=== PATIENT | female | born 1960 | race African-American/Black ===

== ENCOUNTER → 2018-01-04 | Day surgery (SDC) | payer OTHER ==
[~2018-01-04] MED LIST: AMBIEN10 MG PO; AMILORIDE HCL5 MG PO; APRISO0.375 GM PO; BUDESONIDE EC3 MG PO; CLONIDINE HCL0.1 MG PO; CRESTOR10 MG PO; DIAZEPAM5 MG PO; FERROUS SULFAT325 MG PO; FOLIC ACID1 MG PO; GABAPENTIN300 MG PO; LASIX20 MG PO; MECLIZINE HCL12.5 MG PO; MIDAZOLAM HCL 2 MG/2 ML VIAL ONE; OMEPRAZOLE40 MG PO; PROMETHAZINE HC25 M1 PO; PROPOFOL IV EMULSION 10 MG/ML 50 ML VIAL ONE; PROVENTIL HFA6.7 GM INH; SLOW MAGNESIUM PO; SODIUM CHLORID500 M1 IV; SPIRIVA18 MCG INH; TRIBENZOR 20-51 EACH PO; TUMS300 MG PO; VENLAFAXINE H37.5 M2 PO; VITAMIN B-121000 MCG PO; VITAMIN E400 UNI1 PO; [UNRECOGNIZED DRUG - MIXTURE] IV
--- OUTSIDE RECORDS SUMMARY | 2018-01-04 07:18 | XMS REPORT | Clinical Summary ---
Author Author [facility] Address Unknown Phone Unavailable Care Team Providers Care Rn Acute Care Name Role Phone PCP Unavailable Allergies Active Allergy Reactions Severity Noted Date Comments Sulfamethoxazole-Trimetho Other (See Comments) High 09/20/2013 unknown prim Ofloxacin Other (See Comments) High 09/20/2013 unknown Morphine Anxiety High 09/18/2015 Penicillins Itching High 09/20/2013 Bupropion Hcl Other (See Comments), High 09/20/2013 unknown Itching Metoprolol 06/27/2015 Topiramate 06/27/2015 Current Medications Prescription Sig. Disp. Refills Start End Date Status Date olmesartan (BENICAR) 40 Take 20 mg by mouth Active MG tablet nightly . omeprazole (PRILOSEC) 40 Take 40 mg by mouth daily 12/26/19 Active MG capsule . 15 ibandronate (BONIVA) 150 Take 150 mg by mouth 01/03/20 Active mg tablet every 30 (thirty) days . 15 magnesium sulfate 5 Inject 5 g intravenously 06/27/20 Active gram/10 mL (500 mg/mL) every 7 days . 15 Syrg diltiazem (DILACOR XR) Take 120 mg by mouth Active 120 MG 24 hr capsule daily. hyoscyamine (LEVSIN/SL) Take 0.125 mg by mouth Active 0.125 mg SL tablet every 4 (four) hours as needed for Cramping. escitalopram oxalate Take 5 mg by mouth daily. Active (LEXAPRO) 5 MG tablet mesalamine (APRISO) 0.375 Take 1.5 mg by mouth Active gram 24 hr capsule daily . diphenoxylate-atropine Take 1 tablet by mouth 4 Active (LOMOTIL) 2.5-0.025 mg (four) times daily as per tablet needed for Diarrhea. budesonide (UCERIS) 9 mg Take 3 mg by mouth daily Active TaDE . hydrALAZINE (APRESOLINE) Take 50 mg by mouth 3 Active 50 MG tablet (three) times daily. meclizine (ANTIVERT) 25 Take 12.5 mg by mouth 3 Active MG tablet (three) times daily. furosemide (LASIX) 20 MG Take 20 mg by mouth as Active tablet needed . sodium chloride 0.9%, NS, Inject 500 mLs Active irrigation intravenously once a week. acetaminophen-codeine Take 1-2 tablets by mouth 20 tablet 0 08/02/20 Active (TYLENOL #3) 300-30 mg every 6 (six) hours as 16 per tablet needed for Pain (WARNING CAUSES SEDATION) for up to 20 doses. B.ANI/L.ACI/L.PANCHO/L.PLAN/ Take 1 capsule by mouth. Active L.GABI (PROBIOTIC FORMULA ORAL) vitamin E 400 UNIT Take 400 Units by mouth Active capsule daily. calcium carbonate Take 1 tablet by mouth 3 Active (CALCIUM CARBONATE) 300 (three) times daily. mg Chew cholecalciferol, vitamin Take 10 Units by mouth Active D3, 5,000 unit Tab daily Total of 10, 00 daily. lisinopril Take 20 mg by mouth Active (PRINIVIL,ZESTRIL) 20 MG daily. tabletIndications: hypertension hydrochlorothiazide Take 25 mg by mouth Active (HYDRODIURIL) 25 MG daily. tabletIndications: hypertension cloNIDine HCl (CATAPRES) Take 0.2 mg by mouth as Active 0.2 MG tablet needed (systolic 170). diazepam (VALIUM) 10 MG Take 10 mg by mouth 3 Active tablet (three) times daily. gabapentin (NEURONTIN) Take 300 mg by mouth 3 Active 300 MG (three) times daily. capsuleIndications: joint pain albuterol HFA (VENTOLIN Inhale 1 puff by mouth Active HFA) 90 mcg/actuation via inhaler every 4 inhaler (four) hours as needed for Wheezing. folic acid (FOLVITE) 1 MG Take 1 tablet (1 mg 30 tablet 0 12/16/19 12/16/19 tablet total) by mouth daily. 17 18 ferrous sulfate 325 (65 Take 1 tablet (325 mg 60 tablet 0 12/16/19 12/16/19 FE) MG tablet total) by mouth 2 (two) 17 18 times daily. cyanocobalamin 1000 MCG Take 1 tablet (1,000 mcg 30 tablet 0 12/16/19 12/16/19 tablet total) by mouth daily. 17 18 Hospital, Clinic, or Ordered Dose Route Frequency Start End Date Status Other Facility Date Administered Medication sodium chloride 0.9% (NS) IV Once 01/07/20 Active infusion 17 heparin (PF) injection 500 Units Cath PRN 01/07/20 01/07/20 Ended syringe 500 Units 17 17 magnesium sulfate 4 g in IV Once 01/07/20 01/07/20 Ended sodium chloride 0.9% (NS) 17 17 250 mL IVPBIndications: Hypomagnesemia potassium chloride 20 mEq 20 MEQ IV Once 01/07/20 01/07/20 Ended in 100 mL IVPB 17 17 sodium chloride 0.9% (NS) IV Once 01/07/20 01/07/20 Ended infusion 17 17 Active Problems Problem Noted Date Tobacco use disorder, continuous 12/12/[address] scan, chest 12/12/2016 Lung nodule 12/12/2016 EDDIE (acute kidney injury) (HCC) 12/10/2016 Pneumonia, unspecified organism 12/10/2016 Chest pain with moderate risk of acute coronary syndrome 09/17/2015 Acute renal failure (HCC) 07/12/2015 Colitis 12/08/2014 Diverticulosis of colon 12/08/2014 Diarrhea 12/07/2014 Hypomagnesemia 11/28/2013 Nausea & vomiting 11/28/2013 Diarrhea 11/28/2013 Abdominal pain 11/28/2013 Encounters Date Type Specialty Care Team Description 02/16/2017 Hospital Stefania Meeks MD Pre-op testing Encounter 02/16/2017 Orders Only General Internal Medicine 02/16/2017 Anesthesia Izaiah Hendrickson, Event AA 02/16/2017 Surgery Stefania Meeks MD BRONCHOSCOPY,ENDOBRONCHIA L ULTRASOUND (EBUS) DIAGNOSTIC/ THERAPEUTIC 01/07/2017 Procedure visit Oncology Mario Peterson MD Hypomagnesemia (Primary Keith Bloom, RN Dx) after 01/03/2017 Family History Medical History Relation Name Comments Heart disease Father Seizures Father COPD Mother Diabetes Mother Diabetes Sister Relation Name Status Comments Father Alive Mother Sister Alive Social History Tobacco Use Types Packs/Day Years Used Date Former Smoker Cigarettes 1 20 Quit: 12/19/2016 Tobacco Cessation: Ready to Quit: No Comments: Quit smoking in November2016 Alcohol Use Drinks/Week oz/Week Comments No Sex Assigned at Date Recorded Not on file Last Filed Vital Signs Vital Sign Reading Time Taken Blood Pressure 96/77 02/16/2017 2:50 PM CDT Pulse 99 02/16/2017 2:50 PM CDT Temperature 36.9 C (98.4 F) 02/16/2017 2:30 PM CDT Respiratory Rate 24 02/16/2017 2:50 PM CDT Oxygen Saturation 97% 02/16/2017 2:50 PM CDT Inhaled Oxygen - - Concentration Weight 78.7 kg (173 lb 9.6 oz) 02/16/2017 9:09 AM CDT Height 160 cm (5' 3") 02/16/2017 9:09 AM CDT Body Mass Index 30.75 02/16/2017 9:09 AM CDT Plan of Treatment Health Maintenance Due Date Last Done Comments INFLUENZA VACCINE 08/29/2017 Procedures Procedure Name Priority Date/Time Associated Diagnosis Comments BRONCHOSCOPY,SUPER D 02/16/2017 Mass of upper lobe of 10:00 AM CDT right lung Case Notes BRONCHOSCO PY WITH BRUSHING, BRONCHOSCO PY WITH BAL, NAVIGATION , BRONCHOSCO PY WITH TRANSBRONC HIAL BIOPSY, TRANSBRONC HIAL NEEDLE ASPIRATION , PERIPHERAL EBUS Special Needs (C-ARM, RADIAL EBUS AND LUNG POINT, OLYMPUS REP, ENDO TEAM NEEDED) PROCEDURE W/ C-ARM 02/16/2017 Mass of upper lobe of 10:00 AM CDT right lung Case Notes BRONCHOSCO PY WITH BRUSHING, BRONCHOSCO PY WITH BAL, NAVIGATION , BRONCHOSCO PY WITH TRANSBRONC HIAL BIOPSY, TRANSBRONC HIAL NEEDLE ASPIRATION , PERIPHERAL EBUS Special Needs (C-ARM, RADIAL EBUS AND LUNG POINT, OLYMPUS REP, ENDO TEAM NEEDED) BRONCHOSCOPY,ENDOBRONCHIA 02/16/2017 Mass of upper lobe of L ULTRASOUND (EBUS) 10:00 AM CDT right lung DIAGNOSTIC/ THERAPEUTIC Case Notes BRONCHOSCO PY WITH BRUSHING, BRONCHOSCO PY WITH BAL, NAVIGATION , BRONCHOSCO PY WITH TRANSBRONC HIAL BIOPSY, TRANSBRONC HIAL NEEDLE ASPIRATION , PERIPHERAL EBUS Special Needs (C-ARM, RADIAL EBUS AND LUNG POINT, OLYMPUS REP, ENDO TEAM NEEDED) BRONCHOSCOPY,TRANSBRONCHI 02/16/2017 Mass of upper lobe of AL NEEDLE ASPIRATION 10:00 AM CDT right lung BIOPSY Case Notes BRONCHOSCO PY WITH BRUSHING, BRONCHOSCO PY WITH BAL, NAVIGATION , BRONCHOSCO PY WITH TRANSBRONC HIAL BIOPSY, TRANSBRONC HIAL NEEDLE ASPIRATION , PERIPHERAL EBUS Special Needs (C-ARM, RADIAL EBUS AND LUNG POINT, OLYMPUS REP, ENDO TEAM NEEDED) BRONCHOSCOPY,TRANSBRONCHI 02/16/2017 Mass of upper lobe of AL LUNG BIOPSY 10:00 AM CDT right lung Case Notes BRONCHOSCO PY WITH BRUSHING, BRONCHOSCO PY WITH BAL, NAVIGATION , BRONCHOSCO PY WITH TRANSBRONC HIAL BIOPSY, TRANSBRONC HIAL NEEDLE ASPIRATION , PERIPHERAL EBUS Special Needs (C-ARM, RADIAL EBUS AND LUNG POINT, OLYMPUS REP, ENDO TEAM NEEDED) BRONCHOSCOPY,LAVAGE 02/16/2017 Mass of upper lobe of 10:00 AM CDT right lung Case Notes BRONCHOSCO PY WITH BRUSHING, BRONCHOSCO PY WITH BAL, NAVIGATION , BRONCHOSCO PY WITH TRANSBRONC HIAL BIOPSY, TRANSBRONC HIAL NEEDLE ASPIRATION , PERIPHERAL EBUS Special Needs (C-ARM, RADIAL EBUS AND LUNG POINT, OLYMPUS REP, ENDO TEAM NEEDED) BRONCHOSCOPY,BRUSHINGS 02/16/2017 Mass of upper lobe of 10:00 AM CDT right lung Case Notes BRONCHOSCO PY WITH BRUSHING, BRONCHOSCO PY WITH BAL, NAVIGATION , BRONCHOSCO PY WITH TRANSBRONC HIAL BIOPSY, TRANSBRONC HIAL NEEDLE ASPIRATION , PERIPHERAL EBUS Special Needs (C-ARM, RADIAL EBUS AND LUNG POINT, OLYMPUS REP, ENDO TEAM NEEDED) after 01/03/2017 Results * Antibody identification (02/16/2017 4:18 PM) Component Value Ref Range ANTIBODY ID (BEAKER) Anti-Susan UNID IgG Antibody Consult SIGNED OUTComment: Anti Susan detected, transfuse crossmatch compatible RBCs. An IgG antibody of undetermined specificity is detected, transfuse crossmatch compatible RBCs.Electronic Signature: Josef Peterson M.D. * XR chest 1 view portable / bedside (02/16/2017 2:05 PM) Specimen Performing Laboratory GE RIS Narrative FINAL REPORT TECHNIQUE: Frontal chest radiograph dated 02/16/2017. CLINICAL HISTORY: Dyspnea, status post right upper lobe, transbronchial biopsy COMPARISON STUDY: Chest radiograph performed 12/15/2016 IMPRESSION: Right-sided MediPort is unchanged. There are increased interstitial markings predominately in the right upper lobe as well as in the right lower lobe with small amount fluid seen in the right minor fissure, likely secondary to recent biopsy. No focal consolidation seen. No pneumothorax. Cardiomediastinal silhouette is normal in size. No pulmonary edema. No fracture or dislocation. Signed: Mady Gomez MD Report Verified Date/Time:02/16/2017 14:31:40 Reading Location: [facility] Radiology Reading Room Procedure Note Interface, External Ris In - 02/16/2017 2:33 PM CDT FINAL REPORT TECHNIQUE: Frontal chest radiograph dated 02/16/2017. CLINICAL HISTORY: Dyspnea, status post right upper lobe, transbronchial biopsy COMPARISON STUDY: Chest radiograph performed 12/15/2016 IMPRESSION: Right-sided MediPort is unchanged. There are increased interstitial markings predominately in the right upper lobe as well as in the right lower lobe with small amount fluid seen in the right minor fissure, likely secondary to recent biopsy. No focal consolidation seen. No pneumothorax. Cardiomediastinal silhouette is normal in size. No pulmonary edema. No fracture or dislocation. Signed: Mady Gomez MD Report Verified Date/Time: 02/16/2017 14:31:40 Reading Location: [facility] Radiology Reading Room * REPORT OF PROCEDURE - ENDOSCOPY URL (02/16/2017 1:35 PM) * AFB culture + smear (02/16/2017 1:35 PM) Only the most recent of 4 results within the time period is included. Component Value Ref Range Result No acid-fast bacilli isolated in 42 days AFB Smear No acid fast bacilli seen Specimen Performing Laboratory Tissue - Lung, Right [facility] Upper Lobe [address] [place] [address] * Surgically obtained culture + gram stain (02/16/2017 1:35 PM) Component Value Ref Range Result No growth Gram Stain Result <1+ WBCs Gram Stain Result No organisms seen Specimen Performing Laboratory Tissue - Lung, Right [facility] Upper Lobe [address] [place] [address] * Fungus culture + smear (02/16/2017 1:35 PM) Only the most recent of 4 results within the time period is included. Component Value Ref Range Result No fungus isolated in 28 days Fungus Smear No fungi seen Specimen Performing Laboratory Tissue - Lung, Right [facility] Upper Lobe [address] [place] [address] * Bronchial culture + gram stain (02/16/2017 1:30 PM) Only the most recent of 3 results within the time period is included. Component Value Ref Range Result No growth Gram Stain Result No White blood cells seen Gram Stain Result No organisms seen Specimen Performing Laboratory Bronch Brushing - Lung, [facility] Right Upper Lobe [address] [place] [address] * SPIN/CONCENTRATION CHARGE (02/16/2017 1:30 PM) Only the most recent of 3 results within the time period is included. Component Value Ref Range Concentration charged Done Specimen Performing Laboratory Bronch Brushing - Lung, [facility] Right Upper Lobe [address] [place] [address] * Cytology (02/16/2017 1:24 PM) Only the most recent of 3 results within the time period is included. Component Value Ref Range Cytology See Separate Report Specimen Performing Laboratory BAL - Lung, Right Upper [facility] Lobe [address] [place] [address] * Cytology (02/16/2017 1:24 PM) Only the most recent of 3 results within the time period is included. Component Value Ref Range Case Report Medical Cytology Report Case: [id number] Authorizing Provider: Stefania Meeks MD Ordering Provider: Stefania Meeks MD Ordering Location: [facility] Collected: 02/16/2017 1324 PERIOPERATIVE SERVICES Pathologist: Daniel Rhodes MD Received: 02/16/2017 143 Specimen: Lung, Right Upper Lobe DIAGNOSIS RIGHT UPPER LOBE LUNG, BAL (CYTOSPINS): - NO MALIGNANT CELLS IDENTIFIED Signing Pathologist Direct Phone Line: [phone] COMMENT Please see surgical pathology report [id number] and cytopathology reports [id number], [id number], and 744. CPT Code(s) 85025 CLINICAL DATA Mass of lung, right upper; chronic bronchitis SPECIMEN SOURCE RIGHT UPPER LOBE LUNG BAL GROSS DESCRIPTION 38 ml RPMI; 4 cytospins Collected: [id number] Received: 18023 STATEMENT OF ADEQUACY Satisfactory Technical component was [facility], Department of performed at Pathology, [address] [place] [address], Professional component [facility], Department of was performed at Pathology, [address] [place] [address], Specimen Performing Laboratory BAL - Lung, Right Upper [facility] Lobe [address] [place] [address] * Tissue Exam (02/16/2017 1:22 PM) Component Value Ref Range Case Report Surgical Pathology Report Case: [id number] Authorizing Provider: Stefania Meeks MD Ordering Provider: Stefania Meeks MD Ordering Location: [facility] Collected: 02/16/2017 1322 PERIOPERATIVE SERVICES Pathologist: Ruben Gregory MD Received: 02/16/2017 1520 Specimens: A) - Lung, Right Upper Lobe, site 1 transbronchial B) - Lung, Right Upper Lobe, site 2 transbronchial DIAGNOSIS PART A RIGHT UPPER LOBE LUNG, TRANSBRONCHIAL BIOPSY SITE #1: BLOOD AND RARE SUPERFICIAL STRIPS OF UNREMARKABLE BRONCHIOLAR EPITHELIUM. NEGATIVE FOR CARCINOMA. DIAGNOSTIC MATERIAL IS LIMITED, SEE DIAGNOSTIC COMMENT. PART B RIGHT UPPER LOBE LUNG, TRANSBRONCHIAL BIOPSY SITE #2: BLOOD AND RARE SUPERFICIAL STRIPS OF UNREMARKABLE BRONCHIOLAR EPITHELIUM. NEGATIVE FOR CARCINOMA. DIAGNOSTIC MATERIAL IS LIMITED, SEE DIAGNOSTIC COMMENT. Signing Pathologist Direct Phone Line: [phone] COMMENT The above findings may not be inbound sales representative of a clinically suspicious mass. Correlation with clinical and radiological findings required to determine the need for additional tissue based studies. CPT Code(s) 53125A9 CLINICAL HISTORY Mass of lung right upper, chronic bronchitis SPECIMEN SOURCE A. Right upper lobe transbronchial biopsy site 1 B. Right upper lobe transbronchial biopsy site 2 GROSS DESCRIPTION Specimen is received in two containers of formalin both labeled with the patient's information. Specimen A: Labeled "right upper lobe transbronchial biopsy site #1" consists of five fragments of mcgee-red soft tissue ranging from 0.1 to 0.2 cm, submitted in A1. Specimen B: Labeled "right upper lobe lung transbronchial biopsy site #2" consists of a 0.4 cm fragment of red soft tissue submitted entirely in B1. CG/ew Specimen Performing Laboratory Tissue - Lung, Right [facility] Upper Lobe [address] [place] [address] * Fine Needle Aspirate (02/16/2017 1:06 PM) Component Value Ref Range Cytology See Separate Report Specimen Performing Laboratory Fine Needle Aspirate - [facility] Lung, Right Upper Lobe [address] [place] [address] * Fine Needle Aspirate by Clinician (02/16/2017 1:06 PM) Component Value Ref Range Case Report Medical Cytology Report Case: [id number] Authorizing Provider: Stefania Meeks MD Ordering Provider: Stefania Meeks MD Ordering Location: [facility] Collected: 02/16/2017 1306 PERIOPERATIVE SERVICES Pathologist: Daniel Rhodes MD Received: 02/16/2017 0576 Specimen: Lung, Right Upper Lobe, henderson needle TBNA DIAGNOSIS RIGHT UPPER LOBE LUNG, FNA BY CLINICIAN (CELL BLOCK OF ASPIRATE): - NO MALIGNANT CELLS IDENTIFIED - PREDOMINANTLY BLAND BRONCHIAL EPITHELIAL CELLS Signing Pathologist Direct Phone Line: [phone] COMMENT Please see surgical pathology report [id number] and cytopathology reports [id number], [id number], and [id number] for further evaluation. CPT Code(s) 11294 CLINICAL DATA Mass of lung, right upper; chronic bronchitis SPECIMEN SOURCE RIGHT UPPER LOBE LUNG FNA GROSS DESCRIPTION 25 ml CytoRich Red fixative; cell block only Collected: [id number] Received: 179440 Technical component was [facility], Department of performed at Pathology, [address] [place] [address], Professional component [facility], Department of was performed at Pathology, [address] [place] [address], Specimen Performing Laboratory Fine Needle Aspirate - [facility] Lung, Right Upper Lobe [address] [place] [address] * [place] radio interference trouble shooter in or 30 minute increments (02/16/2017 12:53 PM) Specimen Performing Laboratory [employer] Narrative FLUOROSCOPIC UNIT UTILIZED-NO INTERPRETATION REQUESTED. Procedure Note Interface, External Ris In - 02/24/2017 2:00 PM CDT FLUOROSCOPIC UNIT UTILIZED-NO INTERPRETATION REQUESTED. * ECG 12 lead (02/16/2017 11:21 AM) Specimen Performing Laboratory GE MUSE Narrative Ventricular Rate 78 BPM Atrial Rate 78 BPM P-R Interval 160 ms QRS Duration 86 ms Q-T Interval 394 ms QTC Calculation(Bazett) 449 ms P [place] 73 degrees R [place] -32 degrees T [place] 40 degrees Normal sinus rhythm Left axis deviation Abnormal ECG When compared with ECG of 25-DEC-2015 22:06, No significant change was found Confirmed by MD Sybil, Jose ([id number]) on 02/16/2017 2:29:58 PM Procedure Note Interface, External Ris In - 02/16/2017 2:30 PM CDT Ventricular Rate 78 BPM Atrial Rate 78 BPM P-R Interval 160 ms QRS Duration 86 ms Q-T Interval 394 ms QTC Calculation(Bazett) 449 ms P [place] 73 degrees R [place] -32 degrees T [place] 40 degrees Normal sinus rhythm Left axis deviation Abnormal ECG When compared with ECG of 25-DEC-2015 22:06, No significant change was found Confirmed by MD Devine Roberto ([id number]) on 02/16/2017 2:29:58 PM * aPTT (02/16/2017 10:49 AM) Component Value Ref Range PTT 27.5 22.5 - 36.0 seconds Specimen Performing Laboratory Blood - Arm, [address] [address] * Prothromin time/INR (02/16/2017 10:49 AM) Only the most recent of 2 results within the time period is included. Component Value Ref Range Protime 12.7 11.7 - 14.7 seconds INR 1.0 <=5.9 Specimen Performing Laboratory Blood - Arm, [address] [address] Narrative RECOMMENDED COUMADIN/WARFARIN INR THERAPY RANGES STANDARD DOSE: 2.0 - 3.0 Includes: PROPHYLAXIS for venous thrombosis, systemic embolization; TREATMENT for venous thrombosis and/or pulmonary embolus. HIGH RISK: Target INR is 2.5-3.5 for patients with mechanical heart valves. * Type and screen, automated (02/16/2017 9:57 AM) Component Value Ref Range ABO/RH AUTOMATED (BEAKER) A POSITIVE Ab Scrn POSITIVE Specimen Performing Laboratory Blood [address] [address] * Magnesium (01/07/2017 11:12 AM) Component Value Ref Range Magnesium 0.7 (LL) 1.6 - 2.6 mg/dL Specimen Performing Laboratory Blood [address] [address] * Basic Metabolic Panel (01/07/2017 11:12 AM) Component Value Ref Range Sodium 139 136 - 145 meq/L Potassium 2.8 (L) 3.5 - 5.1 meq/L Chloride 97 (L) 98 - 107 meq/L CO2 27 22 - 29 meq/L BUN 13 7 - 21 mg/dL Creatinine 1.02 0.57 - 1.25 mg/dL Glucose 98 70 - 105 mg/dL Calcium 8.6 8.4 - 10.2 mg/dL EGFR 68Comment: ESTIMATED GFR IS NOT ACCURATE mL/min/1.73 sq m CREATININE CLEARANCE IN PREDICTING GLOMERULAR FILTRATION RATE. ESTIMATED GFR IS NOT APPLICABLE FOR DIALYSIS PATIENTS. Specimen Performing Laboratory Blood [facility] [address] [address] after 01/03/2017
--- OUTSIDE RECORDS SUMMARY | 2018-01-04 07:18 | XMS REPORT ---
Author Author [facility] Address Unknown Phone Unavailable Care Team Providers Care Computer Aided Design Drafter Name Role Phone STEFANIA MEEKS Unavailable Unavailable Problems This patient has no known problems. Allergies, Adverse Reactions, Alerts This patient has no known allergies or adverse reactions. Medications This patient has no known medications. Results Test Description Test Time Test Comments Text Results Atomic Results Result Comments AFB CULTURE + SMEAR 2017-04-06 18:13:00 CULTURE (BEAKER) (test ptgr=3582) No acid-fast bacilli isolated in 42 days AFB SMEAR (BEAKER) (test rduh=352) No acid fast bacilli seen AFB CULTURE + [id number] 18:13:00* Test Item Value Reference Range Comments CULTURE (BEAKER) (test vroc=6879) No acid-fast bacilli isolated in 42 days AFB SMEAR (BEAKER) (test vbwy=271) No acid fast bacilli seen AFB CULTURE + [id number] 18:13:00* Test Item Value Reference Range Comments CULTURE (BEAKER) (test itrr=4058) No acid-fast bacilli isolated in 42 days AFB SMEAR (BEAKER) (test dpok=438) No acid fast bacilli seen AFB CULTURE + [id number] 18:13:00* Test Item Value Reference Range Comments CULTURE (BEAKER) (test jwez=7779) No acid-fast bacilli isolated in 42 days AFB SMEAR (BEAKER) (test occt=750) No acid fast bacilli seen FUNGUS CULTURE + [id number] 20:01:00* Test Item Value Reference Range Comments CULTURE (BEAKER) (test hogs=5120) No fungus isolated in 28 days FUNGUS SMEAR (BEAKER) (test gozn=0574) No fungi seen FUNGUS CULTURE + [id number] 20:01:00* Test Item Value Reference Range Comments CULTURE (BEAKER) (test pzsp=7526) No fungus isolated in 28 days FUNGUS SMEAR (BEAKER) (test vyom=2005) No fungi seen FUNGUS CULTURE + [id number] 20:01:00* Test Item Value Reference Range Comments CULTURE (BEAKER) (test ylbb=5703) No fungus isolated in 28 days FUNGUS SMEAR (BEAKER) (test kpnk=5173) No fungi seen FUNGUS CULTURE + [id number] 20:01:00* Test Item Value Reference Range Comments CULTURE (BEAKER) (test doin=8600) No fungus isolated in 28 days FUNGUS SMEAR (BEAKER) (test jjpu=6008) No fungi seen SURGICALLY OBTAINED CULTURE + GRAM [id number] 09:01:00* Test Item Value Reference Range Comments CULTURE (BEAKER) (test wqbv=7947) No growth GRAM STAIN RESULT (BEAKER) (test qpby=1521) <1+ WBCs GRAM STAIN RESULT (BEAKER) (test gdae=17288) No organisms seen FINE NEEDLE ASPIRATION BY [id number] 11:24:00* Test Item Value Reference Range Comments LAB AP CPT CODE (BEAKER) (test zqjm=6693) 63257 BRONCHIAL CULTURE + GRAM [id number] 23:58:00* Test Item Value Reference Range Comments CULTURE (BEAKER) (test cgik=3375) No growth GRAM STAIN RESULT (BEAKER) (test wnnf=8425) No White blood cells seen GRAM STAIN RESULT (BEAKER) (test xkig=65192) No organisms seen BRONCHIAL CULTURE + GRAM [id number] 23:57:00* Test Item Value Reference Range Comments CULTURE (BEAKER) (test clez=3355) No growth GRAM STAIN RESULT (BEAKER) (test ybiu=3245) No White blood cells seen GRAM STAIN RESULT (BEAKER) (test jgxe=55898) No organisms seen BRONCHIAL CULTURE + GRAM [id number] 23:57:00* Test Item Value Reference Range Comments CULTURE (BEAKER) (test xani=1991) No growth GRAM STAIN RESULT (BEAKER) (test fzuc=0463) <1+ WBCs GRAM STAIN RESULT (BEAKER) (test nibj=43754) No organisms seen [id number] 15:30:00* Test Item Value Reference Range Comments LAB AP CPT CODE (BEAKER) (test rsok=9904) [id number] 15:25:00* Test Item Value Reference Range Comments LAB AP CPT CODE (WINNIE) (test hsul=6512) 05295 [id number] 14:50:00* Test Item Value Reference Range Comments LAB AP CPT CODE (WINNIE) (test wsap=0198) 85463 TISSUE [id number] 13:03:00Surgical Pathology Report Case: [id number] Authorizing Provider: Stefania Meeks MD Ordering Provider: Stefania Meeks MD [facility]: 1322 [facility]IOPER[facility] Pathologist: Ruben Gregory MD Received: 02/16/2017 1520 Specimens: A) - Lung, Right Upper Lobe, site 1 transbronchial B) - Lung, Right Upper Lobe, site 2 transbronchial PART A RIGHT UPPER LOBE LUNG, TRANSBRONCHIAL BIOPSY SITE #1:BLOOD AND RARE SUPERFICIAL STRIPS OF UNREMARKABLE BRONCHIOLAR EPITHELIUM.NEGATIVE FOR CARCINOMA.DIAGNOSTIC MATERIAL IS LIMITED, SEE DIAGNOSTIC COMMENT.PART B RIGHT UPPER LOBE LUNG, TRANSBRONCHIAL BIOPSY SITE #2:BLOOD AND RARE SUPERFICIAL STRIPS OF UNREMARKABLE BRONCHIOLAR EPITHELIUM. NEGATIVE FOR CARCINOMA.DIAGNOSTIC MATERIAL IS LIMITED, SEE DIAGNOSTIC COMMENT. Signing Pathologist Direct Phone Line: [phone] above findings may not be mill representative of a clinically suspicious mass. Correlation with clinical and radiological findings required to determine the need for additional tissue based studies.[id number] of lung right upper, chronic bronchitisA. Right upper lobe transbronchial biopsy site 1B. Right upper lobe transbronchial biopsy site 2Specimen is received in two containers of formalin both labeled with the patient's information.Specimen A: Labeled "right upper lobe transbronchial biopsy site #1" consists of five fragments of mcgee-red soft tissue ranging from 0.1 to 0.2 cm, submitted in A1.Specimen B: Labeled "right upper lobe lung transbronchial biopsy site #2" consists of a 0.4 cm fragment of red soft tissue submitted entirely in B1. CG/ewSPIN/CONCENTRATION [id number] 10:11:00* Test Item Value Reference Range Comments CONCENTRATION CHARGED (BEAKER) (test sqyp=3888) Done SPIN/CONCENTRATION [id number] 10:11:00* Test Item Value Reference Range Comments CONCENTRATION CHARGED (BEAKER) (test dket=5464) Done SPIN/CONCENTRATION [id number] 10:11:00* Test Item Value Reference Range Comments CONCENTRATION CHARGED (BEAKER) (test jpuo=9622) Done CYTOLOGY [id number] 16:00:00* Test Item Value Reference Range Comments CYTOLOGY RESULT POINTER (BEAKER) (test crqd=6547) See Separate Report FINE NEEDLE ASPIRATE (FNA) [id number] 16:00:00* Test Item Value Reference Range Comments CYTOLOGY RESULT POINTER (BEAKER) (test raue=2606) See Separate Report CYTOLOGY [id number] 16:00:00* Test Item Value Reference Range Comments CYTOLOGY RESULT POINTER (BEAKER) (test ktce=4357) See Separate Report CYTOLOGY [id number] 16:00:00* Test Item Value Reference Range Comments CYTOLOGY RESULT POINTER (BEAKER) (test ebci=4306) See Separate Report [id number] 11:14:00* Test Item Value Reference Range Comments PARTIAL THROMBOPLASTIN TIME (BEAKER) (test fbbh=718) 27.5 seconds 22.5-36.0 PROTHROMBIN TIME/[id number] 11:13:00* Test Item Value Reference Range Comments PROTIME (BEAKER) (test rarq=118) 12.7 seconds 11.7-14.7 INR (BEAKER) (test xbtw=803) 1.0 <=5.9 RECOMMENDED COUMADIN/WARFARIN INR THERAPY RANGESSTANDARD DOSE: 2.0 - 3.0 Includes: PROPHYLAXIS for venous thrombosis, systemic embolization; TREATMENT for venous thrombosis and/or pulmonary embolus.HIGH RISK: Target INR is 2.5-3.5 for patients with mechanical heart valves.PROTHROMBIN TIME/[id number] 10:34: 00* Test Item Value Reference Range Comments PROTIME (BEAKER) (test kvbk=610) 13.0 seconds 11.7-14.7 Sample clotted; corrected report called to #[id number] ;rb okThis is a corrected result. Previous result was 13.0 seconds on 02/16/2017 at 1019 CDT INR (SHERLY (test olsl=858) 1.0 <=5.9 Sample clotted;corrected report called to #[id number] ;rb okThis is a corrected result. Previous result was 1.0 on at 1019 CDT RECOMMENDED COUMADIN/WARFARIN INR THERAPY RANGESSTANDARD DOSE: 2.0 - 3.0 Includes: PROPHYLAXIS for venous thrombosis, systemic embolization; TREATMENT for venous thrombosis and/or pulmonary embolus.HIGH RISK: Target INR is 2.5-3.5 for patients with mechanical heart valves.
--- NOTE | 2018-01-04 10:24 | Operative Report ---
DATE OF PROCEDURE: PROCEDURE PERFORMED: Colonoscopy. PREOPERATIVE DIAGNOSIS: History of collagenous colitis. POSTOPERATIVE DIAGNOSES: History of collagenous colitis, diverticulosis, and internal hemorrhoids. PREOPERATIVE MEDICATIONS: Consisted of TEVA. TECHNIQUE: Using the [email or web address] video colonoscope, this was inserted in the patient's rectum and advanced without difficulty to the level of the cecum. The cecum was documented by photos. The colon was studied from that level down to the rectum. No polypoid lesions, tumor, or masses were seen. Scattered diverticula were encountered. Internal hemorrhoids were seen as we withdrew the colonoscope from the patient's rectum. Because of the history of collagenous colitis, biopsies were obtained in the sigmoid colon, looking for whether the collagenous colitis has since healed. The colonoscope was withdrawn from the patient's rectum and the procedure was ended. Job#: [id number] SAK
== END | disposition home or self-care (01) ==
LOC: OR 07:16
PROVIDERS: ATTEND Internal Medicine Gastroenterology
DX: K52.89 Other specified noninfective gastroenteritis and colitis (principal); D12.6 Benign neoplasm of colon, unspecified; K29.00 Acute gastritis without bleeding; K57.30 Diverticulosis of large intestine without perforation or abscess without bleeding; K64.8 Other hemorrhoids; K27.9 Peptic ulcer, site unspecified, unspecified as acute or chronic, without hemorrhage or perforation; K21.0 Gastro-esophageal reflux disease with esophagitis; K44.9 Diaphragmatic hernia without obstruction or gangrene; I10 Essential (primary) hypertension; F41.9 Anxiety disorder, unspecified; F17.200 Nicotine dependence, unspecified, uncomplicated; Z01.810 Encounter for preprocedural cardiovascular examination; Z83.71 Family history of colonic polyps
CPT/HCPCS: 45380; 93005; J2250